=== PATIENT | female | born 1960 ===

== ENCOUNTER 2017-02-08 08:40 | Inpatient (IN) | payer OTHER ==
[~2017-02-08] VITALS: Ht 165.1 cm; Wt 80.4 kg
--- NOTE | ~2017-02-08 | WRIGHTHP ---
[place], [place] PATIENT HISTORY AND PHYSICAL EXAM [id number] #: [id number] ROOM: 314 DOCTOR: ARA ROSEN MD BIRTHDATE: [birth year] DOS: 02/09/2017 INITIAL PSYCHIATRIC EVALUATION. CHIEF COMPLAINT: "I'm really not suicidal, this is all a misunderstanding." HISTORY OF PRESENT ILLNESS: This is a 56-year-old white female who was sent here from [facility]. The patient reports that she had been drinking alcohol, several of her dogs were sprayed by skunks and she decided that she was going to get a gun to shoot the skunks to eliminate them. Her gun however jammed. She then spent several hours phoning different family members attempting to get them to help her to the gun. With growing frustration, she did tell her cousin that he should come over here to help her fix the gun before she shoots herself. Because there was a recent suicide in the family, the cousin panicked and called 911 and had her taken to [facility]. She was found to have a blood alcohol of 192. After the alcohol level was back down to normal, she did report that she no longer was suicidal, but [facility] was concerned because she seemed rather disjointed and fragmented and felt inpatient evaluation was warranted. The patient does endorse depressive symptoms and states that her current medication regimen was ineffective and in fact was actually making her feel worse than better. She reports chronic sleep, very low mood, crying spells, inability to cope, hopeless, helpless feelings. Of note, already after adjusting her medicines, getting rid of the Ativan, the Prozac, the stimulant and the BuSpar, she reports feeling much better and much clear in her head. She felt that the medicine that she was given last night, the Trintellix, is actually helping her already. 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 PAST MEDICAL HISTORY: Remarkable for diabetes, nicotine abuse, history of cervical cancer, hypothyroidism, possible uterine cancer. MENTAL STATUS: The patient is alert and oriented to person, place and time. Mood seems depressed. Affect was somewhat flat and blunted, but she really brightened as we talked. She was very hopeful about the future and voiced positive plans and as mentioned previously was very concerned about losing her job. There was no shaquille. There was no psychosis. Speech rate and pattern was within normal limits. Memory is fully intact. DIAGNOSIS: Major depression, recurrent, severe. PLAN: I will go ahead and increase her Trintellix from 10 mg at bedtime to 20 mg at bedtime to maximize the total dose and attempt to impact positively on her mood. We will engage her in individual and francois milieu activity with the plan to discharge then when psychiatrically stable. [place], [place] PATIENT HISTORY AND PHYSICAL EXAM NAME[facility]: [id number] UNIT #: [id number] ROOM: [facility] DOCTOR: ARA ROSEN MD BIRTHDATE: [birth year] ARA ROSEN MD CM:HISPHYS:PATIENT HISTORY AND PHYSICAL EXAMINATION 1 1013 ARA ROSEN MD 02/09/17 1011 interface
[2017-02-08] MEDS ORDERED: ATIVAN1 MG PO (10:58)
[2017-02-08] MEDS ORDERED: VITAMIN D50000 UNIT PO (11:09)
[2017-02-08] MEDS ORDERED: PROZAC40 M1 PO (11:10)
[2017-02-08] MEDS ORDERED: BUSPAR5 MG PO (11:11)
[2017-02-08] MEDS ORDERED: DEXTROAMPHETAMIN5 MG PO (11:11)
[2017-02-08] MEDS ORDERED: HYDROCHLOROTH12.5 M3 PO (11:14)
[2017-02-08] MEDS ORDERED: METFORMIN HCL500 MG PO (11:14)
[2017-02-08] MEDS ORDERED: ATORVASTATIN CA20 M1 PO (11:16)
[2017-02-08] MEDS ORDERED: VITAMIN B1250 MCG PO (11:17)
[2017-02-08] MEDS ORDERED: VITAMIN D-32000 UNI1 PO (11:17)
[2017-02-08] MEDS ORDERED: ASCORBIC ACID250 M1 PO (11:18)
[2017-02-08] MEDS ORDERED: MULTIVITAMINS1 EAC5 PO (11:18)
[2017-02-08 12:43] VITALS: BP 154/87
--- NOTE | 2017-02-08 13:05 | NUR ---
LAKESHIAROLAND L a 56 year old F admitted via ambulance from the ADMITTING as a emergency 72 hr. hold admission. Arrived on unit at 1220. ALLERGIES: NKDA. Vital signs are: 98.4-88-18 154/87. 97% ROOM AIR The client signed the following forms with stated understanding: Authorization For The Release of Medical Information, Clothing List, Consent to Voluntary Admission and Hospitalization, Consent and Release Forms/Receipt of Rights, Acknowledgement of Advance Directive Information, Behavioral Health Consent Form, and Informed Consent of Medications. Admitted under the services of Dr. JESSIKA LIU,[facility]. A search was conducted and hazardous articles were removed. Client was oriented to the unit. JAGUAR HERRERA THE CLIENT DID NOT SIGN ADMISSION CONSENT D/T PINK SLIP.
--- NOTE | 2017-02-08 14:06 | NUR ---
DR. HAMILTON NOTIFIED OF CONSULT FOR MEDICAL MANAGEMENT.
--- NOTE | 2017-02-08 14:11 | NUR ---
PT IS ALERT AND ORIENTED TO PERSON, PLACE, TIME AND SITUATION. MEMORY APPEARS INTACT. RESPIRATIONS EASY ON ROOM AIR. MOOD IS DEPRESSED, ANXIOUS, TEARFUL AT TIMES THROUGHOUT THE ADMISSION INTERVIEW, HOWEVER, PT REMAINS CALM AND COOPERATIVE WITH ADMISSION PROCESS. PT DENIES SI/HI. PT STATES "I TOOK THE GUN TO MY COUSIN'S HOUSE TO HAVE HIM TEACH ME HOW TO USE THE SAFETY BECAUSE I HAVE LOTS OF SKUNKS AT MY HOUSE AND THEY KEEP SPRAYING MY DOG. I GOT UPSET BECAUSE MY SON'S DOESN'T LIKE ME AND I THREW THE GUN DOWN AND SAID 'I MIGHT WELL SHOOT MYSELF.'" PT REPORTS THIS STATEMENT WAS MADE OUT OF FRUSTRATION AND REPORTS "I NEVER REALLY THOUGHT ABOUT ACTUALLY SHOOTING MYSELF, I WAS IN THE [employer], IF I WANTED TO SHOOT MYSELF I WOULD HAVE JUST DONE IT. I NEVER EVEN POINTED THE GUN AT MYSELF. I MAKE ONE MISTAKE AND THEY LOCK ME UP." PT REPORTS RELATIONSHIP DIFFICULTIES WITH HER SON AND HIS CAUSING HER NOT TO BE ABLE TO SEE OR TALK TO HER GRANDDAUGHTER WHICH INCREASES HER ANXIETY AND DEPRESSIVE SYMPTOMS. PT STATES HER DEPRESSION HAD BEEN PRETTY WELL MANAGED THE PAST FEW YEARS UNTIL SOME RECENT MED CHANGES WERE MADE. PT IS MOTIVATED FOR TREATMENT, AGREEABLE TO ALL MED CHANGES MADE BY DR. ROSEN. MED EDUCATION PROVIDED REGARDING NEW MEDICATIONS. PT DENIES HALLUCINATIONS, NO RESPONSE TO ITNERNAL STIMULI NOTED. NO PARANOIA/DELUSIONS NOTED. PT IS AMBULATORY WITH STEADY GAIT. INDEPENDENT WITH ADLS, CONTINENT OF BOWEL AND BLADDER. PT ORIENTED TO UNIT, HER ROOM AND CALL LEHMAN. NO DISTRESS NTOED. Q15 MIN SAFETY CHECKS INITAITED AND MAINTAINED UPON ADMISSION. REFER TO [facility] FLOWSHEET FOR SPECIFIC MONITORING.
--- NOTE | 2017-02-08 15:30 | NUR ---
JENNIFER ALVARENGA CNP OF [facility] HERE TO SEE PT AT THIS TIME.
[2017-02-08 20:07] VITALS: BP 127/82
--- NOTE | 2017-02-09 04:53 | NUR ---
24 HR chart check completed.
--- NOTE | 2017-02-09 05:53 | NUR ---
PT SLEPT GREATER THAN 10 HOURS THIS SHIFT. NO S/S OF DISTRESS NOTED. NO C/O PAIN. Q15 MINUTE SAFETY CHECKS MAINTAINED. PT ISOLATIVE AND WITHDRAWN, ANXIOUS AND DEPRESSED. NO HALLUCINATIONS OR DELUSIONS NOTED. NO SI/HI NOTED. SEE [facility] FLOWSHEET FOR SPECIFIC MONITORING.
[2017-02-09 06:31] LABS: BASO # 0.1 10*3/uL (0.0-0.1); BASO % 0.7 % (0.0-1.0); EOS # 0.2 10*3/uL (0.0-0.4); HEMATOCRIT 42.3 % (37.0-47.0); HEMOGLOBIN 14.3 g/dl (12.0-16.0); LYMPH # 3.1 10*3/uL (1.3-4.4); LYMPH % 36.4 % (27.0-41.0); MEAN CELL VOLUME 91.2 fl (81.0-99.0); MEAN CORPUSCULAR HGB 30.8 pg (27.0-31.0); MEAN CORPUSCULAR HGB CONC 33.8 g/dl (33.0-37.0); MEAN PLATELET VOLUME 9.2 fl (9.6-12.3); MONO # 0.8 10*3/uL (0.1-1.0); MONO % 9.1 % (3.0-9.0); NEUT # 4.4 10*3/uL (2.3-7.9); NEUT % 51.6 % (47.0-73.0); PLATELET COUNT AUTOMATED 347 10*3/uL (130-400); RED BLOOD COUNT 4.64 10*6/uL (4.10-5.10); RED CELL DISTRI WIDTH 13.2 % (0-14.5); WHITE BLOOD COUNT 8.4 10*3/uL (4.8-10.8)
[2017-02-09 07:16] LABS: ALBUMIN 3.6 gm/dl (3.1-4.5); BUN 12 mg/dl (7-24); CHLORIDE 106 mmol/L (98-107); POTASSIUM 3.8 mmol/L (3.5-5.1); SODIUM 142 mmol/L (136-145)
[2017-02-09 07:28] LABS: ALKALINE PHOSPHATASE 81 U/L (45-117); CHOLESTEROL 281 mg/dL (<200); CREATININE 0.78 mg/dL (0.55-1.02); HDL CHOLESTEROL 86 mg/dl (40-60); LDL CHOLESTEROL 166 mg/dL (9-159); SGOT/AST 24 IU/L (3-35); SGPT/ALT 31 U/L (12-78); TRIGLYCERIDES 143 mg/dl (<150); VLDL CHOLESTEROL 29 mg/dL (6-40)
[2017-02-09 07:41] LABS: VITAMIN D, 25-HYDROXY 45.1 ng/mL (30-100)
[2017-02-09 07:52] VITALS: BP 133/90
--- NOTE | 2017-02-09 10:30 | NUR ---
PER DAVID RANDLE, JER SPOKE WITH PT'S SISTER GARRY, GARRY STATES GUN WAS REMOVED FROM THE HOME BY POLICE. CONVERSATION WITNESSED BY THIS RN AND 2ND RN JOSE CRUZ.
--- NOTE | 2017-02-09 11:51 | NUR ---
DR. HAMILTON AND DR. BURGESS ON UNIT TO SEE PT AT THIS TIME, MADE AWARE PT TO BE DISCHARGED TOMORROW AND WOULD LIKE FLU SHOT.
--- NOTE | 2017-02-09 12:07 | NUR ---
PT SPOKE WITH BROTHER IN LAW, STATES HE WILL BE HERE TO PICK HER UP AT NOON TOMORROW AND SHE CAN GO HOME WITH HIM.
--- NOTE | 2017-02-09 13:59 | NUR ---
FLU VACCINE GIVEN AT THIS TIME TO PTS LEFT DELTOID. PT AFEBRILE, TEMP 97.8. VACCINE INFORMATION SHEET PROVIDED TO PT PRIOR TO ADMINISTRATION, QUESTIONS ANSWERED. PT TOLERATED WELL.
--- NOTE | 2017-02-09 16:29 | NUR ---
PT IS ALERT AND ORIENTED TO PERSON, PLACE, TIME AND SITUATION. MEMORY INTACT. RESPIRATIONS EASY ON ROOM AIR. MOOD IS STABLE, AFFECT IS BROAD RANGE AND APPROPRIATE. SPEECH IS WNL AND COHERENT, ABLE TO MAKE NEEDS KNOWN WITHOUT DIFFICULTY. PT DENIES SI/HI, INTENT OR PLAN. VERBALLY CONTRACTED FOR SAFETY. PT DENIES HALLUCINATIONS, NO RESPONSE TO INTERNAL STIMULI NOTED. NO PARANOIA/DELUSIONS NOTED. MEDICATION COMPLIANT WITHOUT DIFFICULTY. PT IS AMBULATORY WITH STEADY GAIT, INDEPENDENT WITH ADLS, CONTINENT OF BOWEL AND BLADDER, FEEDS SELF, DISPLAYS GOOD APPETITE WITH ADEQUATE FLUID INTAKE. NO DISTRESS NOTED. Q15 MIN SAFETY CHECKS MAINTAINED, REFER TO [facility] FLOWSHEET FOR SPECIFIC MONITORING.
[2017-02-09 20:00] VITALS: BP 150/80
--- NOTE | 2017-02-09 21:00 | NUR ---
CAME DOWN FOR SNACK THEN BACK TO ROOM TO READ. DENIES ANY PROBLEMS. STATES HAD A GOOD DAY
--- NOTE | 2017-02-10 02:47 | NUR ---
24 HR chart check completed.
[2017-02-10 07:49] VITALS: BP 136/85
--- NOTE | 2017-02-10 09:46 | NUR ---
DR. BURGESS NOTIFIED OF DISCHARGE FOR TODAY.
[2017-02-10] MEDS ORDERED: BRIN20TA PO (10:16)
[2017-02-10] MEDS ORDERED: LORAZEPAM1 MG PO (10:16)
--- NOTE | 2017-02-10 11:09 | NUR ---
PT IS ALERT AND ORIENTED TO PERSON, PLACE, TIME AND SITUATION. MEMORY INTACT. RESPIRATIONS EASY ON ROOM AIR. MOOD IS STABLE, EUTHYMIC, AFFECT IS BROAD RANGE AND APPROPRIATE. SPEECH IS WNL AND COHERENT, ABLE TO MAKE NEEDS KNOWN WITHOUT DIFFICULTY. PT DENIES SI/HI, INTENT OR PLAN. VERBALLY CONTRACTED FOR SAFETY. PT DENIES HALLUCINATIONS, NO RESPONSE TO INTERNAL STIMULI NOTED. NO PARANOIA/DELUSIONS NOTED. MEDICATION COMPLIANT WITHOUT DIFFICULTY. MED EDUCATION PROVIDED. PT VERBALIZES UNDERSTANDING. PT VERBALIZES READINESS FOR DISCHARGE. PT IS AMBULATORY WITH STEADY GAIT, INDEPENDENT WITH ADLS, CONTINENT OF BOWEL AND BLADDER, DISPLAYS GOOD APPETITE WITH ADEQUATE FLUID INTAKE. PT IS CALM AND COOPERATIVE, INTERACTIVE WITH STAFF AND PEERS. NO DISTRESS NOTED, Q15 MIN SAFETY CHECKS MAINTAINED, REFER TO [facility] FLOWSHEET FOR SPECIFIC MONITORING.
--- NOTE | 2017-02-10 11:51 | NUR ---
DISCHARGE INSTRUCTIONS REVIEWED WITH PT, MEDICATION LIST REVIEWED WITH PT, PT VERBALIZED UNDERSTANDING OF DISCHARGE INSTRUCTIONS AND MEDS. REINFORCED WITH PT IMPORTANCE OF SCHEDULING FOLLOW UP APPOINTMENTS D/T OFFICES BEING CLOSED FOR THE WEEKEND/ DAY. PT VERBALIZED UNDERSTANDING. PT CONVINGLY DENIES SUICIDAL IDEATION, INTENT OR PLAN. PT SIGNED NO-SUICIDE CONTRACT. PT ABLE TO VERBALIZE SUPPORT SYSTEM OF FRIENDS/FAMILY. PAPER SCRIPTS FOR TRINTELLIX AND ATIVAN SENT WITH PT. PT LEFT THE UNIT AT 1130 VIA WHEELCHAIR ESCORTED BY [facility] TO BE SENT HOME WITH [employer] VIA PRIVATE VEHICLE. PT LEFT THE UNIT IN STABLE CONDITION. ALL PERSONAL BELONGINGS INCLUDING LOCK BOX ITEMS WERE SENT WITH THE PT.
--- NOTE | 2017-02-11 07:30 | NUR ---
pt. d/c'ed home with TEGAN per Nurse Harrell. pt.'s gun had been confisctaed by police when they had pciked her up to take her to [facility], see assessment completed on 02/09/17 per this SW.
== END 2017-02-10 11:51 | disposition home or self-care (01) | DRG 885 ==
LOC: 3N 08:40
PROVIDERS: ADMIT Psychiatry & Neurology Psychiatry
DX: F33.2 Major depressive disorder, recurrent severe without psychotic features (principal); E11.9 Type 2 diabetes mellitus without complications; E89.0 Postprocedural hypothyroidism; F10.10 Alcohol abuse, uncomplicated; Z72.0 Tobacco use; Z85.41 Personal history of malignant neoplasm of cervix uteri; Z85.42 Personal history of malignant neoplasm of other parts of uterus; Z90.710 Acquired absence of both cervix and uterus; Z90.49 Acquired absence of other specified parts of digestive tract; Z83.3 Family history of diabetes mellitus; Z80.9 Family history of malignant neoplasm, unspecified; Z79.84 Long term (current) use of oral hypoglycemic drugs; Z79.899 Other long term (current) drug therapy; Z71.6 Tobacco abuse counseling